=== PATIENT | female | born 1985 | race African-American/Black ===

== ENCOUNTER 2017-04-19 16:11 | Emergency (ER) | payer MEDICAID ==
[~2017-04-19] VITALS: Ht 177.8 cm; Wt 72.6 kg
[~2017-04-19 16:11] MED LIST: CLINDAMYCIN HC150 MG PO; NKM
[2017-04-19] MEDS ORDERED: PREDNISONE20 MG ORAL (16:59)
[2017-04-19] MEDS ORDERED: AMOXICILLIN500 MG ORAL (16:59)
[2017-04-19] MEDS ORDERED: IBUPROFEN600 MG ORAL (16:59)
--- NOTE | 2017-04-19 17:18 | Emergency Room Report ---
History of Present Illness General Chief Complaint: Sore Throat Source: Patient Present Illness [facility] The patient is a 31-year-old female presenting for sore throat since yesterday. She denies any known sick contacts or recent travel. Pain is an 8/10 dull ache to the back of the throat and is worse with swallowing. Pain does not radiate. She noticed swelling of her tonsils yesterday. She denies any other symptoms including N, V, F, chills, cough Allergies: Coded Allergies: No Known Allergies (Unverified , 08/27/12) Patient History Past Medical History: see triage record Pertinent Family History: none Reviewed Nursing Documentation: PMH: Agreed, PSxH: Agreed Nursing Documentation-PMH Past Medical History: No Stated History Review of Systems All Other Systems: negative except mentioned in HPI Physical Exam Vital Signs Date Time Temp Pulse Resp B/P (MAP) Pulse Ox O2 Delivery O2 Flow Rate FiO2 04/19/17 16:21 98.2 65 20 114/67 99 Room Air Sp02 EP Interpretation: reviewed, normal General Appearance: no apparent distress, alert, GCS 15, non-toxic Head: normocephalic, atraumatic Eyes: bilateral eye normal inspection, bilateral eye PERRL ENT: hearing grossly normal, no angioedema, normal voice, uvula midline, tonsillar swelling, pharyngeal erythema, tonsillar exudate Neck: full range of motion, supple/symm/no masses Respiratory: chest non-tender, lungs clear, normal breath sounds, speaking full sentences Cardiovascular #1: regular rate, rhythm, no edema Musculoskeletal: back normal, gait/station normal, normal range of motion, non- tender Neurologic: alert, oriented x3, responsive, motor strength/tone normal, sensory intact, speech normal Psychiatric: judgement/insight normal, memory normal, mood/affect normal, no suicidal/homicidal ideation Skin: normal color, no rash, warm/dry, well hydrated Lymphatic: adenopathy Medical Decision Making PA Attestation Dr. Galvan is my supervising physician. Patient management was discussed with my supervising physician Diagnostic Impression: Primary Impression: Pharyngitis, acute Qualified Codes: J02.9 - Acute pharyngitis, unspecified ER Course The patient is a 31-year-old female presenting for sore throat since yesterday. Differential diagnosis include but not limited to pharyngitis, sinusitis, AOM, bronchitis, PNA Physical exam: Vitals within normal limits. Afebrile. No apparent distress HEENT exam: There is bilateral tonsillar edema, erythema, and exudate. Uvula midline. Moist mucous membranes. There is bilateral cervical lymphadenopathy. Lungs are clear to auscultation bilaterally Skin is warm and dry. No rash The patient will be discharged home with a prescription for amoxicillin and is given ER precautions. Patient will followup with primary care Last Vital Signs Date Time Temp Pulse Resp B/P (MAP) Pulse Ox O2 Delivery O2 Flow Rate FiO2 04/19/17 16:21 98.2 65 20 114/67 99 Room Air Status: improved Disposition: HOME, SELF-CARE Condition: Improved Scripts Amoxicillin* (AMOXIL*) 500 Mg Capsule 500 MG ORAL Q12HR, #20 CAP Prov: KENNETH RADFORD.A. 04/19/17 Prednisone* (PREDNISONE*) 20 Mg Tablet 40 MG ORAL DAILY, #6 TAB Prov: KENNETH RADFORD P.A. 04/19/17 Ibuprofen* (MOTRIN*) 600 Mg Tablet 600 MG ORAL Q8H Y for For Pain, #30 TAB 0 Refills Prov: KENNETH RADFORD P.A. 04/19/17 Patient Instructions: Sore Throat Additional Instructions: I discussed my findings with the patient. All questions and concerns have been answered. Treatment and medication compliance have been addressed. I advised the patient that they need to follow up with PMD in 3-5 days. Return to ED if pain remains or worsens, cough worsens or remains, you notice blood in your sputum, you notice wheezing, you experience a fever, or if needed for any reason. Patient verbalized understanding of discharge instructions. KENNETH RADFORD Apr 19, 2017 17:18
[2017-04-19 17:37] VITALS: BP 114/67
[2017-04-19 17:39] VITALS: BP 114/67
== END 2017-04-19 17:40 | disposition home or self-care (01) ==
LOC: EMR 16:57
DX: J02.9 Acute pharyngitis, unspecified (principal)
CPT/HCPCS: 99283